=== PATIENT | female | born 1990 | race American Indian/Alaskan Native ===

== ENCOUNTER 2018-09-09 19:09 | Emergency (ER) | payer BC, OTHER ==
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
[2018-09-09 20:07] LABS: Basophils % (Auto) 0.2 % (0.0-1.8); Eosinophils # (Auto) 0.1 K/mm3 (0.0-0.4); Eosinophils % (Auto) 1.2 % (0.0-4.3); Hematocrit 42.2 % (30.3-42.9); Lymphocytes # (Auto) 1.3 K/mm3 (1.2-5.4); Mean Corpuscular HGB Conc 33 % (30-34); Mean Corpuscular Volume 90 fl (79-97); Monocytes # (Auto) 0.7 K/mm3 (0.0-0.8); Monocytes % (Auto) 8.7 % (0.0-7.3); Platelet Count 267 K/mm3 (140-440); Red Blood Count 4.69 M/mm3 (3.65-5.03); Red Cell Distribution Width 14.6 % (13.2-15.2)
[2018-09-09 20:23] LABS: Alanine Aminotransferase 15 units/L (7-56); BUN/Creatinine Ratio 13; Blood Urea Nitrogen 12 mg/dL (7-17); Calcium 9.7 mg/dL (8.4-10.2); Hemolysis Index 12
[2018-09-09] MEDS ORDERED: NACL 0.9% 500 ML 500 ML IV ONE (21:33)
[2018-09-09] MEDS ORDERED: SUBLIMAZE IV ONE (21:33)
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
[2018-09-09] MEDS ORDERED: NACL 0.9% 1000 ML 1,000 ML ONE (22:40)
[2018-09-09 22:58] LABS: Bacteria,Urine 1+ /HPF (Negative); Bilirubin,Urine NEG (Negative); Blood,Urine NEG (Negative); Color,Urine Yellow (Yellow); Mucus,Urine FEW /HPF; Protein,Urine <15 mg/dL mg/dL (Negative); Urobilinogen,Urine < 2.0 mg/dL (<2.0)
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
[2018-09-10 01:38] VITALS: BP 122/67
== END 2018-09-10 02:30 | disposition home or self-care (01) ==
LOC: ED 19:09
DX: R10.32 Left lower quadrant pain (principal); M25.562 Pain in left knee; F17.200 Nicotine dependence, unspecified, uncomplicated; V43.52XA Car driver injured in collision with other type car in traffic accident, initial encounter; Y93.89 Activity, other specified; Y92.488 Other paved roadways as the place of occurrence of the external cause; Y99.8 Other external cause status
CPT/HCPCS: 36415; 71046; 72170; 73552; 73590; 74177; 80053; 81001; 82550; 83690; 84703; 85025; 87086; 96374; 99285; J3010; J7030; Q9967; 96361